=== PATIENT | female | born 1980 | race Caucasian/White ===

== ENCOUNTER 2019-09-27 03:09 | Emergency (ER) | payer OTHER, SELFPAY ==
[2019-09-27 03:10] VITALS: BP 150/80; PULSE 93; RESP 20; TEMP 36.6; O2SAT 98; BMI 39.2
--- NOTE | 2019-09-27 03:20 | RAD_ITS ---
STUDY: X-RAY CHEST REASON FOR EXAM: Female, 39 years old. C/O TIGHTNESS IN CHEST MAINLY LEFT SIDE X 3 WEEKS INCREASED SEVERITY PAST 5 DAYS TECHNIQUE: Single frontal view of the chest. COMPARISON: None. FINDINGS: The lungs are clear and expanded. There is no demonstrated pleural abnormality. Normal size heart. Normal mediastinum and hina. Normal visualized pulmonary arteries. Normal visualized aortic arch and descending thoracic aorta. Normal visualized thoracic spine. Normal visualized ribs, clavicles, and shoulders. There is no demonstrated abnormality of the visualized soft tissue structures of the upper abdomen. RAD/Chest 1 View (Portable) IMPRESSION: Normal x-ray examination of the chest. Electronically Signed: Ghulam Tavera, at 4:16 EST Tel , Service support ,
--- NOTE | 2019-09-27 03:21 | EKG12_ITS ---
Test Reason : CP Blood Pressure : / mmHG Vent. Rate : 091 BPM Atrial Rate : 091 BPM P-R Int : 160 ms QRS Dur : 088 ms QT Int : 356 ms P-R-T Axes : 059 044 041 degrees QTc Int : 437 ms Normal sinus rhythm Normal ECG Confirmed by YUE HAMM ([id number]), health editor JULIANE BECERRA ([id number]) on 09/29/2019 3:35:22 PM Referred By: NANCY Confirmed By:YUE HAMM
--- NOTE | 2019-09-27 03:23 | ED.DCSUM_ITS ---
- ER Visit Summary Date of Service: 09/27/19 Chief Complaint: Chest pain History of Present Illness: The patient is a 39 F with no primary care physician. She reports that she has had chest pain for the past 3 weeks. Initially it was intermittent. Is been constant for the past 4 to 5 days. She describes it as a left-sided tightness. Is 8 out of 10 at worst and 4-10 currently. Is worsened by laying down. Is relieved by nothing. She reports that she has shortness of breath with this. She denies any nausea, vomiting, or diaphoresis. She does report that she has palpitations. She describes these flutter that lasts seconds at a time. She does have a family history of DVT. No personal history of DVT. No recent travel. No ankle swelling or calf pain. She is not on control pills. She does not smoke. Physical Examination: Vitals: Stable. Afebrile. General: Well-nourished and well-developed. Head: Normocephalic atraumatic. Neck: Supple, no lymphadenopathy. No JVD. Nontender. Cardiovascular: Regular rate and rhythm. No murmurs. Respiratory: No respiratory distress. Clear to auscultation bilaterally. Abdominal: Soft, nontender, nondistended, normal bowel sounds. No guarding, rebound, or peritoneal signs. Back: Nontender. Extremities: Nontender, no edema. Skin: Normal color, no rash. Neurologic: Alert and oriented ?3. Cranial nerves II through XII are intact. Normal strength and sensation. Psych: Normal affect. Test Results: EKG is sinus at [address] changes. Is unchanged from May 21, 2017. CBC is remarkable for a white count of 13.0. Chem-7 is normal. Troponin is negative. test is negative. TSH is slightly elevated at 4.06. Chest x-ray shows no acute disease. Emergency Department Course and Treatment: Patient had an IV placed. She was given Toradol IV. She is resting more comfortably. Treatment Plan: Patient's heart score is 2. Her pain is very atypical. I feel that she is a suitable candidate for further outpatient evaluation. She will be discharged with instructions to follow-up with Dr. Melgar within a week for another evaluation. Return to the emergency department for any worsening symptoms. Disposition: To home in improved and stable condition. Impression: 1. Atypical chest pain. 2. PVCs. This note was generated with [employer] dictation software. It may contain incorrect words, spelling, and punctuation that were not noted in review of the chart prior to signing ED Disposition - Plan for ED Patient: Instructions: Premature Ventricular Contractions Referrals: Bernice Bra DO [STAFF PHYSICIAN] - 1-2 Weeks
[2019-09-27] MEDS: Ketorolac 15 MG/ML Vial IV (03:26)
[2019-09-27] MEDS: 0.9% Normal Saline 1,000 ML 1000 ML IV (03:26)
[2019-09-27 03:38] LABS: Absolute Neutrophil Count 7.7 X10^3/uL (2.0-7.7); Basophil# 0.05 X10^3/uL; Basophil% 0.4 % (0-1); Eosinophil# 0.35 X10^3/uL; Eosinophils% 2.7 % (0-5); Hematocrit 43.4 % (37-47); Hemoglobin 14.2 g/dL (12.0-15.0); Lymphocyte % 29.9 % (19-41); Mean Corp Hgb Conc 32.7 g/dL (32-36); Mean Corpuscular Hgb 29.8 pg (27.0-32.0); Mean Platelet Vol. 9.7 fl (6.2-12.0); Monocyte# 1.03 X10^3/uL; Monocyte% 7.9 % (0-10); NRBC Flagged by Analyzer 0 % (0-5); Neutrophil # 7.67 X10^3/uL (2.7-7.7); Neutrophil % 58.9 % (47-70); Platelet Count 318 K/mm3 (150-450); RBC Distribution Width CV 13.2 % (11.6-14.6); RBC Distribution Width SD 44.4 fl (35.1-43.9); Red Blood Count 4.77 M/mm3 (4.2-5.4)
[2019-09-27 03:53] LABS: Internal QC Validated? YES +Cl - CLEAR BKGD; Pregnancy, Serum, hCG Quali. NEGATIVE Negative
[2019-09-27 04:08] LABS: Anion Gap 7 (5-15); BUN 13 mg/dL (7-18); BUN/Creat Ratio 15.1 RATIO (10-20); Calcium,Total 9.2 mg/dL (8.5-10.1); Chloride 107 mmol/L (98-107); Creatinine, Serum 0.86 mg/dL (0.55-1.02); EST Glomerular Filtration Rate 77 mL/min (>60); Est Glom Filt Rate - Afr Amer 94 mL/min (>60); Estimated Creatinine Clearance 83.72 ml/min; Glucose 100 mg/dL (74-106); Potassium 3.5 mmol/L (3.5-5.1); Sodium Level 139 mmol/L (136-145); Thyroid Stim Hormone (TSH) 4.06 uIU/mL (0.358-3.74)
[2019-09-27 04:18] VITALS: BP 112/66; PULSE 78; RESP 21; O2SAT 97
== END 2019-09-27 04:47 | disposition home or self-care (01) ==
LOC: ED 03:39
PROVIDERS: Emergency Provider Emergency Medicine
DX: R07.89 Other chest pain (principal); I49.3 Ventricular premature depolarization
CPT/HCPCS: 71045; 80048; 84443; 84484; 84703; 85025; 93005; 96361; 96374; 99285; J7030